=== PATIENT | male | born 1965 | race Caucasian/White ===

== ENCOUNTER 2023-10-07 12:01 | Emergency (ER) | payer OTHER ==
[2023-10-07 12:29] VITALS: BP 128/86; PULSE 86; RESP 20; TEMP 99; BMI 25.3
== END 2023-10-07 14:32 | disposition home or self-care (01) ==
LOC: FER 12:01
PROC: 2W3RX1Z Immobilization of Left Lower Leg using Splint (ICD-10-PCS; principal; 2023-10-07)
DX: S82.302A Unspecified fracture of lower end of left tibia, initial encounter for closed fracture (principal); M25.572 Pain in left ankle and joints of left foot; W01.198A Fall on same level from slipping, tripping and stumbling with subsequent striking against other object, initial encounter
CPT/HCPCS: 29515; 73610-TC-LT-FY; 73630-TC-LT; 99283-25